=== PATIENT | male | born 1960 | race Caucasian/White ===

== ENCOUNTER → 2018-02-11 | Outpatient (CLI) | payer SELFPAY ==
--- NOTE | 2018-02-11 17:16 | PCVCIMAG ---
APPROVED REPORT Study performed: 02/11/2018 15:50:21 Exam: Stress Echocardiogram Indication: CAD,ELEVATED COR CA+ SCORE Patient Location: Echo lab Stress Nurse: Genevieve Franco RN Room #: 2 Status: routine Ht: 5 ft 7 in HR: 70 bpm BP: 132/84 mmHg Rhythm: NSR Medical History Medical History: Diabetes, Hyperlipidemia Cardiac Risk Factors: DM, Hyperlipidemia,Elevated Cor Ca+ score Previous Cardiac Procedures: none Pretest Chest Pain Characteristics: No chest pain Exercise History: Indeterminate Procedure The patient underwent an Exercise Stress Test using the Taylor Protocol. Blood pressure, heart rate, and EKG were monitored. An Echocardiogram was performed by chemical laboratory technician in four stages in quad fashion. At peak stress, four selected images were obtained and placed side by side with resting images for comparison. Stress Test Details Stress Test: Exercise stress testing was performed using a Taylor protocol. HR Resting HR: 81 bpmMax Heart Rate (APMHR): 161 bpm Max HR Achieved: 162 bpmTarget HR (85% APMHR): 136 bpm % of APMHR: 100 Recovery HR: 99 bpm HR response to stress: Normal HR response to stress BP Resting BP: 132/84 mmHg Max BP: 174/86 mmHg Recovery BP: 146/86 mmHg ECG Resting ECG: Sinus Rhythm Stress ECG: Sinus Rhythm ST Change: Downsloping ST depression Maximum ST Deviation: 2.9 mm Arrhythmia: Frequent PVCs and couplets at peak exercise Recovery ECG: Sinus Rhythm, NSSTT changes Recovery Arrhythmia: PVCs Clinical Reason for Termination: Maximal effort Stress Symptoms: none Exercise duration: 6 min 46 sec Highest Stage Achieved: Stage 3: 3.4 mph at 14% grade. Exercise capacity: 9.3 METs Overall Exercise Capacity for Age: Poor Scale: Sedentary Angina Score: None No complications. Stress ECG Conclusion The patient exercised according to the TAYLOR protocol for 6:46 mins; achieving a work level of 9.3 METS. The resting heart rate of 70 bpm ap to a maximum heart rate of 162 bpm. This value represent 100% of the maximal, age-predicted heart rate. The resting blood pressure of 132/84 mmHg, ap to a maximum blood pressure of 174/86 mmHg. The exercise test was stopped due to fatigue. Kong Treadmill Score is -8.5 which is Moderate risk. Pre-Stress Echo The resting Echocardiogram showed normal left ventricular contractility with an estimated Ejection Fraction of about 55-60%. Normal wall motion in all segments on baseline images. Post-Stress Echo The stress Echocardiogram showed normal left ventricular contractility with an estimated Ejection Fraction of about 65-70%. Normal augmentation of wall motion in all segments on post stress images. Clinical No clinical or ECG evidence for ischemia. Conclusion Clinical Response: Non-ischemic Exercise Capacity: Below Average Stress ECG Response: Non-ischemic Stress Echo Images: Non-ischemic No clinical, EKG or echocardiographic evidence for ischemia. No echocardiographic evidence for exercise induced ischemia. Normal stress echocardiogram with maximal exercise stress. <Conclusion> No clinical, EKG or echocardiographic evidence for ischemia. No echocardiographic evidence for exercise induced ischemia. Normal stress echocardiogram with maximal exercise stress.
== END | disposition home or self-care (01) ==
LOC: PCVCIMAG 16:00
PROVIDERS: ATTEND Internal Medicine Cardiovascular Disease
DX: R93.1 Abnormal findings on diagnostic imaging of heart and coronary circulation (principal)
CPT/HCPCS: 93325; 93351